=== PATIENT | female | born 1950 | race Caucasian/White ===

== ENCOUNTER 2022-11-01 07:53 | Day surgery (SDC) | payer MEDICARE, BC ==
[~2022-11-01 07:53] MED LIST: Lactated Ringers 1,000 ML IV SCH; Sodium Chloride 0.9% 10 ML Syringe FLUSH PRN
[2022-11-01] MEDS ORDERED: Ketamine 500 mg/10 ML MDV IV ONE (07:54)
[2022-11-01] MEDS ORDERED: Propofol 200 MG/20 ML SDV IV ONE (07:54)
== END 2022-11-01 11:19 | disposition home or self-care (01) ==
LOC: FB.SDS 07:53
PROVIDERS: ATTEND Surgery
DX: Z12.11 Encounter for screening for malignant neoplasm of colon (principal); F41.9 Anxiety disorder, unspecified; F32.A Depression, unspecified; D64.9 Anemia, unspecified; I10 Essential (primary) hypertension; E78.5 Hyperlipidemia, unspecified; E83.42 Hypomagnesemia; Z80.0 Family history of malignant neoplasm of digestive organs; Z79.899 Other long term (current) drug therapy; Z79.82 Long term (current) use of aspirin; Z98.890 Other specified postprocedural states; Z87.891 Personal history of nicotine dependence; Z88.5 Allergy status to narcotic agent
CPT/HCPCS: 00812-QZ; 82947; J2704; J3490; J7120